=== PATIENT | female | born 1990 | race Caucasian/White ===

== ENCOUNTER 2020-11-24 10:09 | Emergency (ER) | payer OTHER ==
[~2020-11-24] VITALS: Ht 162.6 cm; Wt 68.0 kg
[2020-11-24 10:14] VITALS: BP 130/75
--- NOTE | 2020-11-24 10:18 | NUR ---
Pt taken to lobby to wait for further evaluation.
--- NOTE | 2020-11-24 12:14 | NUR ---
NO NURSING CARE RENDERED. PT SEEN AND DISCHARGED IN ER LOBBY BY DR. HASTINGS.
== END 2020-11-24 12:13 | disposition home or self-care (01) ==
LOC: MED 10:09
DX: S93.491A Sprain of other ligament of right ankle, initial encounter (principal); S93.492A Sprain of other ligament of left ankle, initial encounter; X50.1XXA Overexertion from prolonged static or awkward postures, initial encounter; Y93.89 Activity, other specified; Y92.89 Other specified places as the place of occurrence of the external cause; Y99.8 Other external cause status
CPT/HCPCS: 73610; 99283; 99284